=== PATIENT | female | born 1955 | race African-American/Black ===

== ENCOUNTER → 2021-07-19 | Outpatient (CLI) | payer MEDICARE ==
--- NOTE | 2021-07-20 09:25 | KCIC ---
XR LUMBAR SPINE 2-3V 07/19/2021 1:18 PM INDICATION: Chronic low back pain, right radiculopathy COMPARISON: None available. TECHNIQUE: 3 views the lumbar spine are provided. FINDINGS/ IMPRESSION: There are 4 nonrib-bearing lumbar type vertebral bodies with sacralization of the fifth lumbar segmen t name to L5. Transitional anatomy is identified at the lumbosacral junction. Alignment of the lumbar spine is normal. Vertebral body heights are maintained. Moderate disc height loss is identified at L4-L5 with partial osseous fusion of L5-S1. Moderate intramarginal osteophytosi s. Moderate facet arthropathy lower lumbar spine. Osseous neural foraminal stenosis identified at L4- L5. Atherosclerotic calcifications of the abdominal aorta present. No acute fracture. Nonobstructed b owel gas pattern. Electronically signed by: Palmira Wayne MD (07/20/2021 9:22 AM) [id number]
== END ==
LOC: KCIC 13:02
PROVIDERS: ATTEND Family Medicine
DX: M51.26 Other intervertebral disc displacement, lumbar region (principal); M48.8X6 Other specified spondylopathies, lumbar region; M48.061 Spinal stenosis, lumbar region without neurogenic claudication; M25.78 Osteophyte, vertebrae; I70.0 Atherosclerosis of aorta; M43.27 Fusion of spine, lumbosacral region
CPT/HCPCS: 72100